=== PATIENT | male | born 1945 | race Caucasian/White ===

== ENCOUNTER → 2016-09-07 | Outpatient (CLI) | payer MEDICARE, BC | END | disposition home or self-care (01) | LOC: PCVCCLINIC 15:00 | PROVIDERS: ATTEND Internal Medicine Cardiovascular Disease | DX: I42.9 Cardiomyopathy, unspecified (principal); E78.1 Pure hyperglyceridemia; I25.10 Atherosclerotic heart disease of native coronary artery without angina pectoris; E78.00 Pure hypercholesterolemia, unspecified; I25.5 Ischemic cardiomyopathy; I35.0 Nonrheumatic aortic (valve) stenosis; F10.10 Alcohol abuse, uncomplicated; R10.9 Unspecified abdominal pain | CPT/HCPCS: 80061; 93005; G0463 ==

== ENCOUNTER → 2016-09-15 | Outpatient (CLI) | payer MEDICARE, BC ==
[~2016-09-15] MED LIST: SULFUR HEXAFLUORIDE MICROSPHR 25 MG VIAL. IVP ONE
== END | disposition home or self-care (01) ==
LOC: PCVCIMAG 07:08
PROVIDERS: ATTEND Internal Medicine Cardiovascular Disease
DX: I25.5 Ischemic cardiomyopathy (principal); I35.0 Nonrheumatic aortic (valve) stenosis; E11.9 Type 2 diabetes mellitus without complications; I21.3 ST elevation (STEMI) myocardial infarction of unspecified site; I25.10 Atherosclerotic heart disease of native coronary artery without angina pectoris; E78.1 Pure hyperglyceridemia; Z78.9 Other specified health status
CPT/HCPCS: 76700; 93005; 93306; G0463; 76770; 93975; Q9950

== ENCOUNTER → 2016-10-24 | Outpatient (CLI) | payer MEDICARE, BC | END | disposition home or self-care (01) | LOC: PCVCCLINIC 14:24 | PROVIDERS: ATTEND Internal Medicine Cardiovascular Disease | DX: I12.9 Hypertensive chronic kidney disease with stage 1 through stage 4 chronic kidney disease, or unspecified chronic kidney disease (principal); N18.3 Chronic kidney disease, stage 3 (moderate); E11.22 Type 2 diabetes mellitus with diabetic chronic kidney disease; I35.0 Nonrheumatic aortic (valve) stenosis; I25.10 Atherosclerotic heart disease of native coronary artery without angina pectoris; I42.9 Cardiomyopathy, unspecified; K21.9 Gastro-esophageal reflux disease without esophagitis; Z95.5 Presence of coronary angioplasty implant and graft; Z79.82 Long term (current) use of aspirin; Z79.899 Other long term (current) drug therapy | CPT/HCPCS: 80061; 93005; G0463 ==

== ENCOUNTER → 2016-10-31 | Outpatient (CLI) | payer MEDICARE, BC ==
[~2016-10-31] MED LIST changes: +REGADENOSON 0.4 MG/5 ML DISP.SYRIN. IV ONE; -SULFUR HEXAFLUORIDE MICROSPHR 25 MG VIAL. IVP ONE
--- NOTE | 2016-11-02 17:59 | PCVCIMAG ---
APPROVED REPORT Exam: Nuclear Stress Test Indication: CAD Patient Location: Out-Patient Stress Nurse: Antoinette Bacon RN, Tori Argueta RN OR Tech:Danika JEFFY Allen Ht: 5 ft 10 in Wt: 212 lbs BSA: 2.14 m2 HR: 63 bpm BP: 175/103 mmHg BMI: 30.42 Rhythm: Bradycardia Medical History Medical History: HTN, Hyperlipidemia, CAD, Diabetic Noninsulin, Tobacco history (Former) Medications: Eliquis, Amaryl, Propranolol, Januvia, ASA Allergies: Codeine, Flexeril, Eggs, PCN, Statins Previous Cardiac Procedures: PCI (LAD/RCA) Pretest Chest Pain Characteristics: No chest pain, Murmur Exercise History: Sedentary Physical Disabilities: Legs NM EXAM: Myocardial Perfusion REST/STRESS Imaging Protocol: Rest Tc-99m/Stress Tc-99m 1 day Resting Data Rest SPECT myocardial perfusion imaging was performed in supine position 45 minutes following the intravenous injection of 11.3 mCi of Tc-99m Sestamibi. Time of rest injection: 0930 Date: 10/31/2016 Pharmacologic Stress Pharmacologic stress test was performed by injecting Regadenoson 0.4 mg IV push followed by the intravenous injection of 34.3 mCi of Tc-99m Sestamibi. Time of stress injection: 1100 Date: 10/31/2016 Heart Rate at time of stress injection: 63 bpm. Gated Stress SPECT was performed 45 minutes after stress injection. The images were gated to evaluate regional wall motion and calculate left ventricular ejection fraction. Study Quality Study: Good Study Data Post stress, the left ventricular ejection was 31%.. SSS: 20 SRS: 19 SDS: 2 TID = 1.07. Perfusion No evidence of stress induced ischemia. 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 Old incomplete infarct involving the mid/basal inferolateral wall of the left ventricle with no juan diego-infarct ischemia. Wall Motion Moderately decreased left ventricular systolic function. Nuclear Conclusion No evidence of stress induced ischemia. 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 Old incomplete infarct involving the mid/basal inferolateral wall of the left ventricle with no ujan diego-infarct ischemia. Post stress, the left ventricular ejection was 31%.. No change since prior study dated February 2015. Interpreted by: Shade Baig MD Electronically Approved: 10/31/2016 17:54:43 Stress Test Details Stress Test: Pharmacologic stress testing performed using 0.4 mg of regadenoson per 5 mL given IV over 10 seconds. Reason for pharmacologic stress test: physical limitation. HR Resting HR: 63 bpmMax Heart Rate (APMHR): 151 bpm Max HR Achieved: 75 bpmTarget HR (85% APMHR): 128 bpm % of APMHR: 49 Recovery HR: 69 bpm BP Resting BP: 175/103 mmHg Max BP: 171/110 mmHg Recovery BP: 155/96 mmHg ECG Resting ECG: Sinus Albert, nonspecific ST-T abnormalities Stress ECG: Sinus Rhythm, nonspecific ST-T abnormalities ST Change: None Maximum ST Deviation: 0 mm Arrhythmia: None Recovery ECG: Sinus Rhythm, nonspecific ST-T abnormalities Recovery ST Deviation: 0 mm Clinical Reason for Termination: Completed protocol Stress Symptoms: Dyspnea, resolved during recovery Exercise duration: 00 min 55 sec Exercise capacity: 1 METs Stress ECG Conclusion Clinical: Non-ischemic ECG: Non-ischemic <Conclusion> Clinical: Non-ischemic ECG: Non-ischemic
== END | disposition home or self-care (01) ==
LOC: PCVCIMAG 09:01
PROVIDERS: ATTEND Internal Medicine Cardiovascular Disease
DX: I25.10 Atherosclerotic heart disease of native coronary artery without angina pectoris (principal); I10 Essential (primary) hypertension; E11.9 Type 2 diabetes mellitus without complications; E78.5 Hyperlipidemia, unspecified; Z87.891 Personal history of nicotine dependence
CPT/HCPCS: 78452; 93017; A9500; J2785

== ENCOUNTER → 2017-02-28 | Outpatient (CLI) | payer MEDICARE, BC | END | disposition home or self-care (01) | LOC: PCVCCLINIC 13:18 | PROVIDERS: ATTEND Internal Medicine Cardiovascular Disease | DX: I25.5 Ischemic cardiomyopathy (principal); I42.9 Cardiomyopathy, unspecified; I25.10 Atherosclerotic heart disease of native coronary artery without angina pectoris; I12.9 Hypertensive chronic kidney disease with stage 1 through stage 4 chronic kidney disease, or unspecified chronic kidney disease; N18.3 Chronic kidney disease, stage 3 (moderate); E78.00 Pure hypercholesterolemia, unspecified; I51.3 Intracardiac thrombosis, not elsewhere classified; I35.0 Nonrheumatic aortic (valve) stenosis; Z88.0 Allergy status to penicillin; Z78.9 Other specified health status; Z88.8 Allergy status to other drugs, medicaments and biological substances; Z91.012 Allergy to eggs; Z79.82 Long term (current) use of aspirin; Z79.899 Other long term (current) drug therapy | CPT/HCPCS: 80061; 93005; G0463 ==

== ENCOUNTER → 2017-08-31 | Outpatient (CLI) | payer MEDICARE, BC | END | disposition home or self-care (01) | LOC: PCVCIMAG 13:11 | DX: I08.2 Rheumatic disorders of both aortic and tricuspid valves (principal); I25.10 Atherosclerotic heart disease of native coronary artery without angina pectoris; I25.5 Ischemic cardiomyopathy; E78.01 Familial hypercholesterolemia; R94.31 Abnormal electrocardiogram [ECG] [EKG]; Z78.9 Other specified health status; Z79.82 Long term (current) use of aspirin; Z79.899 Other long term (current) drug therapy; Z88.0 Allergy status to penicillin | CPT/HCPCS: 80061; 93005; 93306; G0463 ==

== ENCOUNTER → 2018-03-04 | Outpatient (CLI) | payer MEDICARE, BC ==
--- NOTE | 2018-03-05 14:46 | PCVCIMAG ---
APPROVED REPORT Study performed: 03/04/2018 14:12:04 Exam: Stress Echocardiogram Indication: CAD s/p MIx 3,, Hypertension,Stents LAD,RCA Patient Location: Echo lab Stress Nurse: Diana Perkins RN Room #: 2 Status: routine Ht: 5 ft 11 in HR: 93 bpm BP: 136/92 mmHg Rhythm: NSR Medical History Medical History: CAD s/p CO x 3, Stents RCA,LAD Cardiac Risk Factors: HTN, Hyperlipidemia, DM, Tobacco History (Former) Previous Cardiac Procedures: PCI Pretest Chest Pain Characteristics: No chest pain Exercise History: Physically active Physical Disabilities: Hip pain Procedure The patient underwent an Exercise Stress Test using the Danyel Protocol. Blood pressure, heart rate, and EKG were monitored. An Echocardiogram was performed by medical coding technician in four stages in quad fashion. At peak stress, four selected images were obtained and placed side by side with resting images for comparison. Stress Test Details Stress Test: Exercise stress testing was performed using a Danyel protocol. HR Resting HR: 93 bpmMax Heart Rate (APMHR): 150 bpm Max HR Achieved: 160 bpmTarget HR (85% APMHR): 127 bpm % of APMHR: 106 Recovery HR: 98 bpm HR response to stress: Normal HR response to stress BP Resting BP: 136/92 mmHg Max BP: 160/90 mmHg Recovery BP: 146/86 mmHg ECG Resting ECG: Sinus Rhythm Stress ECG: Sinus Rhythm ST Change: Non-ischemic Arrhythmia: Rare PVC Recovery ECG: Sinus Rhythm Recovery ST Change: Non-ischemic Recovery Arrhythmia: None Clinical Reason for Termination: Maximal effort Stress Symptoms: none Exercise duration: 5 min 00 sec Highest Stage Achieved: Stage 2: 2.5 mph at 12% grade. Exercise capacity: 7 METs Overall Exercise Capacity for Age: Poor Scale: Active Angina Score: None No complications. Stress ECG Conclusion The patient exercised according to the DANYEL protocol for 5:00 mins; achieving a work level of 7.0 METS. The resting heart rate of 93 bpm tian to a maximum heart rate of 160 bpm. This value represent 106% of the maximal, age-predicted heart rate. The resting blood pressure of 136/92 mmHg, tian to a maximum blood pressure of 160/90 mmHg. The exercise test was stopped due to fatigue . Pre-Stress Echo The resting Echocardiogram showed abnormal left ventricular contractility with an estimated Ejection Fraction of about 25-30%. Old complete infarct of the mid/apical anterior and inferoapical wall of the LV; old incomplete infarct involving the mid/basal inferolateral wall. Post-Stress Echo The stress Echocardiogram showed abnormal left ventricular contractility with an estimated Ejection Fraction of about 25-30%. Conclusion Clinical Response: Non-ischemic Exercise Capacity: Below Average Stress ECG Response: Non-ischemic Stress Echo Images: Non-ischemic No clinical, EKG or echocardiographic evidence for ischemia. <Conclusion> No clinical, EKG or echocardiographic evidence for ischemia.
== END | disposition home or self-care (01) ==
LOC: PCVCIMAG 16:15
PROVIDERS: ATTEND Internal Medicine Cardiovascular Disease
DX: I25.5 Ischemic cardiomyopathy (principal); I25.10 Atherosclerotic heart disease of native coronary artery without angina pectoris; I35.0 Nonrheumatic aortic (valve) stenosis
CPT/HCPCS: 93325; 93351

== ENCOUNTER → 2018-08-20 | Outpatient (CLI) | payer MEDICARE, BC | END | disposition home or self-care (01) | LOC: PCVCCLINIC 15:35 | PROVIDERS: ATTEND Internal Medicine Cardiovascular Disease | DX: I25.10 Atherosclerotic heart disease of native coronary artery without angina pectoris (principal); I25.5 Ischemic cardiomyopathy; I35.0 Nonrheumatic aortic (valve) stenosis; I10 Essential (primary) hypertension; E78.00 Pure hypercholesterolemia, unspecified; Z79.82 Long term (current) use of aspirin; Z88.6 Allergy status to analgesic agent | CPT/HCPCS: 36415; 80061; 93005; G0463 ==

== ENCOUNTER → 2019-03-03 | Outpatient (CLI) | payer MEDICARE, BC ==
--- NOTE | 2019-03-05 18:09 | PCVCIMAG ---
APPROVED REPORT Study performed: 03/03/2019 13:25:07 Exam: Stress Echocardiogram Indication: CAD,, Hyperlipidemia, Hypertension Patient Location: Echo lab Stress Nurse: Tori Argueta RN Status: routine Ht: 5 ft 10 in HR: 96 bpm BP: 140/90 mmHg Rhythm: NSR Medical History Medical History: CAD s/p stent, ischemic cardiomyopathy Procedure The patient underwent an Exercise Stress Test using the Modified Curtis Protocol. Blood pressure, heart rate, and EKG were monitored. An Echocardiogram was performed by nuclear reactor technician in four stages in quad fashion. At peak stress, four selected images were obtained and placed side by side with resting images for comparison. Stress Test Details Stress Test: Exercise stress testing was performed using a Curtis protocol. HR Resting HR: 96 bpmMax Heart Rate (APMHR): 149 bpm Max HR Achieved: 144 bpmTarget HR (85% APMHR): 126 bpm % of APMHR: 96 Recovery HR: 94 bpm HR response to stress: Normal HR response to stress BP Resting BP: 140/90 mmHg Max BP: 138/88 mmHg Recovery BP: 138/88 mmHg BP response to stress: Normal blood pressure response to stress. ECG Resting ECG: Sinus Rhythm, T wave inversion Stress ECG: Sinus Rhythm Arrhythmia: PVC's Recovery ECG: Sinus Rhythm Clinical Reason for Termination: Maximal effort Exercise duration: 5 min sec Highest Stage Achieved: Stage 2: 2.5 mph at 12% grade. Exercise capacity: 5.10 METs Overall Exercise Capacity for Age: Poor Pre-Stress Echo The resting Echocardiogram showed abnormal left ventricular contractility with an estimated Ejection Fraction of about 25-30%. Old myocardial infarct mid/apical and inferoapical: old infarct involving mid/basal inferolateral stewart. Post-Stress Echo The stress Echocardiogram showed abnormal left ventricular contractility with an estimated Ejection Fraction of about 25-30%. No new regional wall motion abnormalities. Conclusion Clinical Response: Non-ischemic Exercise Capacity: Below Average Stress ECG Response: Non-ischemic Stress Echo Images: Non-ischemic Aortic Valve is calcified. peak gradient is 3mmHg. Mean gradient is 19mmhg. Calculated Aortic valve is 1.3cm2. <Conclusion> Aortic Valve is calcified. peak gradient is 3mmHg. Mean gradient is 19mmhg. Calculated Aortic valve is 1.3cm2.
== END | disposition home or self-care (01) ==
LOC: PCVCIMAG 13:21
PROVIDERS: ATTEND Internal Medicine Cardiovascular Disease
DX: I25.10 Atherosclerotic heart disease of native coronary artery without angina pectoris (principal); E78.5 Hyperlipidemia, unspecified; I10 Essential (primary) hypertension
CPT/HCPCS: 93325; 93351